=== PATIENT | male | born 1985 | race Caucasian/White ===

== ENCOUNTER 2025-08-30 20:40 | Emergency (ER) | payer BC, SELFPAY ==
[2025-08-30 20:45] VITALS: BP 153/85; PULSE 96; RESP 16; TEMP 37.3; O2SAT 99; BMI 35.9
[2025-08-30 20:59] LABS: Appearance Urine Clear (Clear)
--- NOTE | 2025-08-30 21:32 | CRLHL7_ITS ---
For Patients: As a result of the Century Cures Act, medical imaging exams and procedure reports are released immediately into your electronic medical record. You may view this report before your referring provider. If you have questions, please contact your health care provider. Indication: Right flank pain, abdominal pain Technique: Noncontrast CT through the abdomen and pelvis with multiplanar reformats. Comparison: None Findings: Lower chest: No acute abnormality appreciated. Hepatobiliary: No significant parenchymal abnormality is appreciated. Spleen: Unremarkable. Pancreas: No acute abnormality appreciated. Adrenal glands: No acute abnormality appreciated. Kidneys: No significant parenchymal abnormality appreciated. No visualized calculi. No hydronephrosis. Bowel: No obstruction. No focal perienteric or pericolonic stranding is appreciated. The appendix is visualized and appears unremarkable. Vascular: Poorly evaluated on this noncontrast examination. Lymph nodes: No gross lymphadenopathy. Peritoneum: No free air. No free fluid. : There is a punctate stone at the right UVJ. Soft tissues: No acute abnormality appreciated. Fat containing left inguinal hernia. Bones: No acute fracture. No lytic or blastic lesion. Impression: Punctate right UVJ stone without evidence of hydronephrosis. Please note that all CT scans at this facility use dose modulation, iterative reconstruction, and/or weight-based dosing when appropriate to reduce radiation dose to as low as reasonably achievable. Dictated by Navdeep Velasco MD @ 08/30/2025 10:40:05 PM (Electronically Signed)
--- NOTE | 2025-08-30 21:34 | ED.ABDPAIN ---
HPI - Abdominal Pain General Time Seen by Provider: 21:34 Date Seen: 08/30/25 Chief Complaint: Abdominal Pain Stated Complaint: Lower R flank pain Time Seen by Provider: 08/30/25 21:34 Source: patient Mode of arrival: ambulatory History of Present Illness HPI narrative: Barrera is a 39 year old male with a past medical history of anxiety who presents to the emergency department for evaluation of flank pain. Patient reports that on Thursday/Thursday he noticed he was having little bit of lower abdominal pain. Patient states that yesterday on Thursday he developed right flank pain. Patient complains of intermittent pain along with increased urinary frequency/urgency/change in stream. Patient reports he was concerned for kidney stone. Patient reports nausea but denies any fever, chills, vomiting, chest pain, shortness of breath. No medications prior to arrival, no prior abdominal surgeries, no other complaints. Related Data Home Medications ?Medication ?Instructions ?Recorded ?Confirmed No Known Home Medications 08/30/25 08/30/25 Allergies Allergy/AdvReac Type Severity Reaction Status Date / Time Penicillins Allergy Nausea Verified 08/30/25 20:48 Review of Systems Narrative Past medical history, past surgical history, medications, allergies, family history, and social history were reviewed with the patient. No additional pertinent items. A medically appropriate review of systems was performed with pertinent positives and negatives noted in HPI, all other systems negative. Exam Narrative: Exam Narrative: General: Afebrile, in distress secondary to pain HEENT: Normocephalic, atraumatic, conjunctiva normal. MMM Neck: non-tender, supple Cardio: regular rate. regular rhythm Resp: Normal work of breathing, no respiratory distress, lungs clear bilaterally, no wheezing, rhonchi, rales Chest/Back: no visual signs of trauma, no midline tenderness, + right flank tenderness to palpation Abdomen: soft, non distension, no tenderness, no peritoneal signs Neuro: alert and fully oriented. CN II-XII grossly intact. Grossly normal strength and sensation in all extremities. MSK: no deformities. Normal range of motion Integumentary/Skin: no rash visualized, normal color Psych: normal affect, normal behavior Const: Vital Signs, click to edit/add: Vital Signs - 24 hr 08/30/25 20:45 Temperature 99.1 F Pulse Rate [Pulse Oximeter] 96 Respiratory Rate 16 Blood Pressure [Ri ght Upper Arm] 153/85 H Pulse Oximetry 99 Oxygen Delivery Me thod Room Air Course Vital Signs Vital signs: Initial Vital Signs Temperature 99.1 F 08/30/25 20:45 Temperature Source Temporal Artery Scan 08/30/25 20:45 Pulse Rate 96 08/30/25 20:45 Respiratory Rate 16 08/30/25 20:45 Blood Pressure 153/85 H 08/30/25 20:45 Blood Pressure Mean 107 H 08/30/25 20:45 Blood Pressure Position Sitting 08/30/25 20:45 Pulse Oximetry 99 08/30/25 20:45 Oxygen Delivery Method Room Air 08/30/25 20:45 Vital Signs Temperature 99.1 F 08/30/25 20:45 Pulse Rate 96 08/30/25 20:45 Respiratory Rate 16 08/30/25 20:45 Blood Pressure 153/85 H 08/30/25 20:45 Pulse Oximetry 99 08/30/25 20:45 Oxygen Delivery Method Room Air 08/30/25 20:45 Temperature 99.1 F 08/30/25 20:45 Pulse Rate 96 08/30/25 20:45 Respiratory Rate 16 08/30/25 20:45 Blood Pressure 153/85 H 08/30/25 20:45 Pulse Oximetry 99 08/30/25 20:45 Oxygen Delivery Method Room Air 08/30/25 20:45 Medications Administered Medications: Discontinued Medications Generic Name Dose Route Start Last Admin Trade Name Freq PRN Reason Stop Dose Admin Sodium Chloride 1,000 mls @ 1,000 mls/hr 08/30/25 21:45 08/30/25 22:47 0.9 % Sodium Chloride 1000 Ml IV 08/30/25 22:44 Infused .Q1H LAMINE Infusion Ketorolac Tromethamine 15 mg 08/30/25 21:32 08/30/25 21:40 Ketorolac 15 Mg/Ml Inj IVP 08/30/25 21:33 15 mg ONCE ONE Administration MDM - Abdominal Pain MDM Narrative Medical decision making narrative: Barrera is a 39-year-old male who presents the emergency department for evaluation of right flank pain. Upon arrival patient is nontoxic appearing, afebrile, in distress secondary to pain. Patient is slightly hypertensive upon arrival blood pressure 153/85, heart rate 96, oxygen 99% on room air. Differential diagnosis includes but is not limited to kidney stone versus pyelonephritis versus cystitis versus appendicitis versus musculoskeletal versus colitis versus cholecystitis among others. Upon arrival patient was treated with IV Toradol, 1 L IV fluid bolus. Comprehensive labs, urinalysis, CT imaging performed. Comprehensive labs unremarkable with no leukocytosis white blood cell count 10.4, hemoglobin 12.3, no acute metabolic electrolyte abnormality, no transaminitis, urinalysis with blood, 2-5 red blood cells, no evidence of acute infection. I personally reviewed and interpreted CT scan abdomen pelvis which demonstrates punctate stone at right UVJ with no evidence of hydronephrosis. Otherwise unremarkable CT scan of the abdomen pelvis. On re-evaluation patient continues to be resting comfortably, no distress. I discussed results with patient. At this time patient feels comfortable discharge home with continued supportive care, recommend alternating Tylenol, ibuprofen every 6 hours as needed for pain. Patient declined anything stronger for pain medications. Encouraged close outpatient follow-up with his primary care provider. Strict return precautions discussed if severe pain, persistent high fever, persistent vomiting, worsening symptoms. Patient understands and agrees the plan. Medical Records Attestation: I reviewed the patient's medical records. Lab Data Attestation: I reviewed the patient's lab results. Labs: Lab Results 08/30/25 08/30/25 Range/Units 21:43 Unknown WBC 10.46 (4.50-11.00) K/uL RBC 5.43 (4.30-5.90) m/uL Hgb 12.3 L (13.5-17.5) gm/dL Hct 39.6 (37.0-53.0) % MCV 73 L (80-100) fL MCH 23 L (26-34) pg MCHC 31 L (32-36) gm/dL RDW Coeff of Andrew 17.4 H (11.5-15.5) % Plt Count 397 (140-440) K/uL Neut % (Auto) 56.1 (42.0-72.0) % Lymph % (Auto) 33.9 (20-44) % [place] % (Auto) 7.9 (0.0-11.0) % Eos % (Auto) 1.4 (0.0-7.0) % Baso % (Auto) 0.4 (0.0-3.0) % Neut # (Auto) 5.86 (1.7-7.0) K/uL Lymph # (Auto) 3.55 H (0.90-2.90) K/uL [place] # (Auto) 0.80 (0.00-0.90) K/UL Eos # (Auto) 0.15 (0.00-0.50) K/uL Baso # (Auto) 0.04 (0.00-0.30) K/uL Abs Immat Gran (auto) 0.03 (0.00-0.30) K/uL Imm/Tot Granulo (auto) 0.3 % Sodium 140 (135-149) mmol/L Potassium 3.9 (3.6-5.1) mmol/L Chloride 100 (96-114) mmol/L Carbon Dioxide 26 (20-32) mmol/L Anion Gap 14 (7-15) mEq/L BUN 11 (5-24) mg/dL Creatinine 0.9 (0.5-1.5) mg/dL Estimated Creat Clear 113.78 Estimated GFR 111 ml/min Glucose 97 (60-115) mg/dL Calcium 9.1 (8.4-10.6) mg/dL Total Bilirubin 0.5 (0.1-1.5) mg/dL AST 38 H (12-35) U/L ALT 45 (4-50) U/L Alkaline Phosphatase 104 (40-150) U/L Total Protein 8.7 H (6.0-8.3) g/dL Albumin 4.8 (3.3-5.0) g/dL Lipase 49 (23-300) U/L Urine Color Yellow (Yellow) Urine Appearance Clear (Clear) Urine pH 6.0 (5.0-8.5) Ur Specific [place] 1.025 (1.000-1.030) Urine Protein Negative (Negative) Urine Glucose (UA) Negative (Negative) Urine Ketones Negative (Negative) Urine Blood 1+ A (Negative) Urine Nitrite Negative (Negative) Urine Bilirubin Negative (Negative) Urine Urobilinogen 0.2 (0.2-1.0) Ur Leukocyte Esterase Negative (Negative) Urine RBC 2-5 A (0-2) Urine WBC 0-2 (0-5) Ur Squamous Epith Cells Few (None-Few) Urine Bacteria Few A (None) Imaging Data CT scan - abdomen: Attestation: I have reviewed the pertinent imaging results. Radiologist's impression: Patient: Barrera Ramesh MR#: [id number] : 1985 Acct:[id number] Loc: ED Service Date: 08/30/[address]: Ordering Physician: Daxa Martin M.D. Date of Service: 08/30/25 Procedure(s): CT abdomen pelvis wo con Accession Number(s): [id number] cc: Daxa Martin M.D.; Provider,Not a Local~ For Patients: As a result of the Cures Act, medical imaging exams and procedure reports are released immediately into your electronic medical record. You may view this report before your referring provider. If you have questions, please contact your health care provider. Indication: Right flank pain, abdominal pain Technique: Noncontrast CT through the abdomen and pelvis with multiplanar reformats. Comparison: None Findings: Lower chest: No acute abnormality appreciated. Hepatobiliary: No significant parenchymal abnormality is appreciated. Spleen: Unremarkable. Pancreas: No acute abnormality appreciated. Adrenal glands: No acute abnormality appreciated. Kidneys: No significant parenchymal abnormality appreciated. No visualized calculi. No hydronephrosis. Bowel: No obstruction. No focal perienteric or pericolonic stranding is appreciated. The appendix is visualized and appears unremarkable. Vascular: Poorly evaluated on this noncontrast examination. Lymph nodes: No gross lymphadenopathy. Peritoneum: No free air. No free fluid. : There is a punctate stone at the right UVJ. Soft tissues: No acute abnormality appreciated. Fat containing left inguinal hernia. Bones: No acute fracture. No lytic or blastic lesion. Impression: Punctate right UVJ stone without evidence of hydronephrosis. Please note that all CT scans at this facility use dose modulation, iterative reconstruction, and/or weight-based dosing when appropriate to reduce radiation dose to as low as reasonably achievable. Dictated by Navdeep Velasco MD @ 08/30/2025 10:40:05 PM Discharge Plan Discharge Clinical Impression: Calculus, ureteral, Acute right flank pain Patient Disposition: Home, Self-Care Condition: Stable Additional Instructions: Please follow-up with your primary care provider in the next 3-5 days for further evaluation and follow-up. Please call to schedule appointment. Please drink plenty of fluids. Please alternate taking Tylenol 1000 mg and ibuprofen 600 mg every 6 hours as needed for pain. Please return to the emergency department if you develop severe pain, persistent vomiting, high fever, worsening symptoms. It was a pleasure taking care of you today. We hope you feel better soon. Prescriptions: No Action No Known Home Medications Follow Up/Referrals: Provider,Not a Local [Primary Care Provider, Family Practice] Stand Alone Forms: [employer] Info Instructions
[2025-08-30 21:49] LABS: Hematocrit* 39.6 % (37.0-53.0); Hemoglobin* 12.3 gm/dL (13.5-17.5); Immature Granulocytes Abs Auto 0.03 K/uL (0.00-0.30); Immature Granulocytes Pct Auto 0.3 %; Lymphocytes Absolute Auto 3.55 K/uL (0.90-2.90); Mean Corpuscular HGB Conc 31 gm/dL (32-36); Mean Corpuscular Hemoglobin 23 pg (26-34); Mean Corpuscular Volume 73 fL (80-100); RDW Coefficient of Variation % 17.4 % (11.5-15.5); Red Blood Count* 5.43 m/uL (4.30-5.90); White Blood Count* 10.46 K/uL (4.50-11.00)
[2025-08-30 21:55] LABS: Slide Review Reflex No
[2025-08-30 22:18] LABS: Chloride* 100 mmol/L (96-114)
[2025-08-30 22:19] LABS: Albumin* 4.8 g/dL (3.3-5.0); Potassium* 3.9 mmol/L (3.6-5.1); Sodium* 140 mmol/L (135-149)
[2025-08-30 22:21] LABS: Blood Urea Nitrogen* 11 mg/dL (5-24); Creatinine* 0.9 mg/dL (0.5-1.5); Est. Creatinine Clearance* 113.78; Estimated Glomerular Filt Rate 111 ml/min
[2025-08-30 22:22] LABS: Alanine Aminotransferase* 45 U/L (4-50); Alkaline Phosphatase* 104 U/L (40-150); Anion Gap 14 mEq/L (7-15); Aspartate Amino Transferase* 38 U/L (12-35); Bilirubin Total* 0.5 mg/dL (0.1-1.5); Calcium* 9.1 mg/dL (8.4-10.6); Carbon Dioxide* 26 mmol/L (20-32); Glucose* 97 mg/dL (60-115); Total Protein* 8.7 g/dL (6.0-8.3)
--- OUTSIDE RECORDS SUMMARY | 2025-08-30 22:25 | XMS_ITS | Clinical Summary ---
Author Organization [facility] Address [address], [place] [address] Care Team Providers Care Supervisor Ski Production Name Role Phone Nilay Jalloh PA-C Primary Care Provider [phone] Source Comments You are receiving this document as you are listed as the primary care provider,follow-up provider, or the patient has been referred to you for consultation.This is in compliance with the Medicare and[facility] Hospital[facility] EHR Incentive Program,which states Providers who transition their patient to another setting of careor provider of care or refers their patient to another provider of care shouldprovide summary care record for each transition of care or referral. Rad Allergies Active Allergy Reactions Criticality Noted Date Comments Amoxicillin 02/28/2015 Penicillins Gastrointestinal 02/28/2015 Medications methylPREDNISolon e (MEDROL 21 TABLET DOSEPACK) 4 MG tabletIndications :Lumbar back pain with radiculopathy affecting left lower extremity Follow package directions 21 Tablet 02/28/20 25 Active semaglutide-weigh t management (WEGOVY) 0.25 MG/0.5ML pen injectionIndicati ons:BMI 37.0-37.9, adult,Obesity (BMI 30-39.9) ([facility]) Inject 0.25mg subcutaneously one time weekly for 4 weeks 2 mL 02/28/20 25 Active semaglutide-weigh t management (WEGOVY) 0.5 MG/0.5ML pen injectionIndicati ons:BMI 37.0-37.9, adult,Obesity (BMI 30-39.9) ([facility]) Inject 0.5 mg subcutaneously one time weekly for 4 weeks Do not start before March 27, 2025. 2 mL 03/27/20 25 Active semaglutide-weigh t management (WEGOVY) 1 MG/0.5ML pen injectionIndicati ons:BMI 37.0-37.9, adult,Obesity (BMI 30-39.9) ([facility]) Inject 1.0 mg subcutaneously one time weekly for 4 weeks Do not start before April 24, 2025. 2 mL 04/24/20 25 Active semaglutide-weigh t management (WEGOVY) 1.7 MG/0.75ML pen injectionIndicati ons:BMI 37.0-37.9, adult,Obesity (BMI 30-39.9) ([facility]) Inject 1.7 mg subcutaneously one time weekly for 4 weeks Do not start before May 22, 2025. 3 mL 05/22/20 25 Active semaglutide-weigh t management (WEGOVY) 2.4 MG/0.75ML pen injectionIndicati ons:BMI 37.0-37.9, adult,Obesity (BMI 30-39.9) ([facility]) Inject 2.4 mg subcutaneously one time weekly for 4 weeks Do not start before June 19, 2025. 9.75 mL 3 06/19/20 25 026 Active Active Problems Problem Noted Date Diagnosed Date Fatty liver 05/25/2023 Medical cannabis use 10/23/2022 Overview (10/23/2022): Using for PTSD. Initial certification processed 10/23/2022 Idiopathic chronic gout of multiple sites withou t [facility] [place] 04/30/2021 Overview (06/24/2022): Controlled on allopurinol 100 mg daily, colchicine for flares. Followed by Rheumatology John Paul Cartagena MD Moderate episode of recurrent major depressive d isorder 06/10/2018 Overview (03/03/2023): Controlled on Zoloft 100 mg daily CLARK (generalized anxiety disorder) 06/10/2018 Overview (03/03/2023): Controlled on Zoloft 100 mg daily. Obesity (BMI 30-39.9) 12/11/2017 Overview (12/11/2017): Controlled on lifestyle and diet modifications. History of tobacco abuse 12/11/2017 Overview (01/14/2018): Quit in 2016 Resolved Problems Problem Noted Date Diagnosed Date Resolved Date Major depressive disorder, s mildred episode, moderate 07/20/2015 12/11/2017 Panic disorder 07/16/2015 12/11/2017 Encounters Date Type Department Care Team Description 06/20/2025 1:00 PM CDT Telemedicine [facility] [address] [place] [address] Nilay Jalloh, PAMashaC NAFLD (nonalcoholic fatty liver disease) (HRC) (Primary Dx); Obesity (BMI 30-39.9) (HRC); BMI 37.0-37.9, adult from Last 3 Months Immunizations Immunization Administration Dates Next Due DTP 05/04/1991, 1,06/15/1986,1985,02/01/1986 Fluzone Qiv Multidose Vial 0 .25 (6-35 Mos) 09/08/2016 HepB Adolescent/High Risk 02/07/1997 HepB Ped/Adol (0-18 yrs) 09/07/1996,08/08/1996 Influenza IIV4 (Quadrivalent ) 0.5mL (99121) 09/07/2019,11/05/2018 MMR 06/09/2000,05/14/1987 Polio, Unspecified Formulation 1,12/02/1990,03/28/1986,1985 Td (7+ yrs) 06/09/2000 Tdap 09/03/2020,09/28/2008 Family History Medical History Relation Name Comments Arthritis Mother Back surgery Depression Sister 1 Julieta Diabetes Sister 1 Julieta Type I Relation Name Status Comments Father Alive Born in 1962 Mother Alive Born in 1965 Sister 1 Julieta Alive Born in 1994 Sister 2 Estela Alive Born in 1984 Son Alive Born in 2011 Social History Tobacco Use Types Packs/Day Years Used Date Smoking Tobacco: Former Cigarettes 0.3 10 Smokeless Tobacco: Never Tobacco Cessation:Counseling Given: Not Answered Alcohol Use Standard Drinks/Week Comments No 0 (1 standard drink = 0.6 oz pur e alcohol) PHQ-2 Answer Date Recorded PHQ-2 Score 2 03/13/2025 Sex and Gender Information Value Date Recorded Sex Assigned at Not on file Legal Sex Male 4:33 PM CDT Gender Identity Not on file Sexual Orientation Not on file 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 Not on file Not on file Not on fi le Last Filed Vital Signs Vital Sign Reading Time Taken Comments Blood Pressure 131/86 02/23/2025 3:59 PM CDT Pulse 98 02/23/2025 3:59 PM CDT Temperature 36.9 C (98.5 F) 02/23/2025 3:58 PM CDT Respiratory Rate 16 11/14/2024 11:0 9 AM [employer] Oxygen Saturation 98% 04/25/2024 9:36 AM CDT Inhaled Oxygen Concentration - - Weight 116.5 kg (256 lb 12.8 oz) 02/23/2025 3:58 PM CDT Height 176.5 cm (5' 9.5) 11/14/2024 11 :09 AM [employer] Body Mass Index 37.38 11/14/2024 11:09 AM [employer] Plan of Treatment Health Maintenance Due Date Last Done Comments HPV Vaccine (1 - 3-dose SCDM series) 2012 Adult Preventive Visit 03/03/2025 03/03/2023, 2017 COVID-19 Vaccine ( season) 2025 Influenza Vaccine (#1) 2025 9, 11/05/2018, 09/08/2016 Diabetes Screening- (based on age and BMI) 11/14/2027 11/14/2024, 03/03/2023, 04/19/2020 Cholesterol 03/03/2028 03/03/2023, 05/30, 01/14/2018 DTaP/Tdap/Td Vaccine (7 - Tdap) 09/03/2030 09/03/2020, 09/28/2008, 06/09/2000, Additional history exists Zoster/Shingles Vaccine (1 of 2) 12/02/2035 IPV (Polio) Vaccine Completed 07/04/1991, 12/02/1990, 03/28/1986, Additional history exists HepB Vaccine Completed 02/07/1997, 08/28, 08/08/1996 HIV Screening (Preventive Services) Completed 01/14/2018 Hep C Screening (Preventive Services) Completed 11/14/2024, 03/03/2023 HepA Vaccine Aged Out No longer eligi ble based on patient's age to complete this topic Hib Vaccine Aged Out No longer eligi ble based on patient's age to complete this topic MCV4 Vaccine Aged Out No longer eligi ble based on patient's age to complete this topic Meningococcal B Vaccine Aged Out No l onger eligible based on patient's age to complete this topic Pneumococcal Vaccine Aged Out No long er eligible based on patient's age to complete this topic Procedures Procedure Name Priority Date/Time Associated Diagnosis Comments HEPATITIS PANEL ACUTE WITH REFLEX TO CONFIRMATION Routine 11/14/2024 11:50 AM [employer] Hepatosplenomegaly (HRC) LIPID PANEL & DIRECT LDL (IF NEEDED) Routine 03/03/2023 10:25 AM CDT Lipid screening HGB A1C Routine 04/19/2020 7:39 AM CDT Generalized abdominal pain HIV 1/2 AG/AB 4TH GEN Routine 01/14/2018 8:24 AM CDT Screening for human immunodeficiency virus from Last 3 Months or Most Recently Relevant to Health Maintenance Results * Hepatitis Panel with Reflex to Confirmation (11/14/2024 11:50 AM EXEC[employer]IVE [employer]) Hepatitis A Antibody, IgM Negative (Non Reactive) Negative (Non Reactive) 11/16/2024 6:11 PM [employer]IVE [employer] [facility] Comment:IgM anti-HAV not det ected. Does not exclude the possibility of exposure to or infection with HAV. Levels of IgM anti-HAV may be below the cut-off in early infection. Hepatitis Bc Antibody,IgM Negative (Non Reactive) Negative (Non-Reacti ve) 11/16/2024 6:11 PM [employer]EC[employer]IVE [employer] [facility] Comment:IgM anti-HBc not det ected. Does not exclude the possibility of exposure to or infection with HBV. Hepatitis B Surface Antigen Negative (Non Reactive) Negative (Non Reactive) 11/16/2024 6:11 PM [employer]EC[employer]IVE [employer] [facility] Hepatitis C Antibody Negative (Non Reactive) Negative (Non Reactive) 11/16/2024 6:11 PM [employer]EC[employer]IVE [employer] [facility] Comment:Antibodies to HCV no t detected. Does not exclude the possiblity of exposure to HCV. Blood Venipuncture / Unknown 11/14/2024 11:50 AM [employer]IVE [employer] 11/14/2024 11:50 AM [employer]IVE [employer] us Libby Garcia MD LAB_1 Final Result Performing Organization Address [facility]/ZIP Co de Phone Number [facility] [address] * (ABNORMAL) Lipid Panel and Direct LDL(If Needed) (03/03/2023 10:25 AM CDT) Cholesterol 181 0 - 199 mg/dL 03/03/2023 11:01 AM CDT [facility] Triglyceride 172(H) <=149 mg/dL 03/03/2023 11:01 AM CDT [facility] HDL Cholesterol 29(L) >=40 mg/dL 3 11:01 AM CDT [facility] LDL, Calculated 118 <130 mg/dL 3 11:01 AM CDT [facility] Non HDL Chol, Calculated 152 <=159 mg/dL 03/03/2023 11:01 AM CDT [facility] Cholesterol/HDL Ratio 6.2 03/03/2023 11:01 AM CDT [facility] Hours Fasting 12 03/03/2023 11:01 AM CDT [facility] Blood Venipuncture / Unknown 03/03/2023 10:25 AM CDT 03/03/2023 10:25 AM CDT us Nilay Jalloh PA-C LAB_1 Final Res ult [facility] [address] [place], [place] [address] [phone] * (ABNORMAL) Hgb A1C (04/19/2020 7:39 AM CDT) Hemoglobin A1C 5.9(H) <=5.6 % 04/19/2020 3:46 PM CDT [facility] Blood Venipuncture / Unknown 04/19/2020 7:39 AM CDT 04/19/2020 7:39 AM CDT Narrative [facility] - 04/19/2020 3:46 PM CDT For patients not previously diagnosed with diabetes: 5.7-6.4%: Increased risk for diabetes 6.5% and greater: Diagnostic for diabetes For patients diagnosed with diabetes: <8.0%: Goal of therapy for ages 18-75 Clinicians may recommend a higher or lower goal for specific individuals. us Nilay Jalloh PA-C LAB_1 Final Res ult Performing Organization Address City/[facility]/ZIP Co de Phone Number [facility] [address] [address] [phone] * HIV 1/2 Ag/Ab 4th Generation (01/14/2018 8:24 AM CDT) HIV-1 p24 Ag and HIV-1/HIV-2 Ab Nonreactive Nonreactive [facility] SOFT 01/14/2018 8:24 AM CDT 01/14/2018 12:46 PM CDT Narrative [facility] - 01/14/2018 2:05 PM CDT Performed at [address] [address] CLIA number [id number] Nilay Jalloh PA-C LAB_1 Final Res ult Performing Organization Address City/[facility] Co de Phone Number PN SOFT [address] [place] [phone] from Last 3 Months or Most Recently Relevant to Health Maintenance Insurance [facility] Care Teams Supervisor Ski Production Relationship Specialty Start Date End Date Nilay Jalloh PA-C [address] [place] [address] PCP - General Internal Medicine 06/19/22
--- OUTSIDE RECORDS SUMMARY | 2025-08-30 22:25 | XMS_ITS | Clinical Summary ---
Author Organization [facility] Address [address] [place] [id number] Care Team Providers Care Real Estate Portfolio Manager Name Role Phone Hussein Lawrence DO Unavailable Unavailable Lesley Paiz Primary Care Provider Unava ilable Allergies Active Allergy Reactions Criticality Noted Date Comments Amoxicillin Vomiting Low 04/04/2015 Penicillins Vomiting Low 04/04/2015 Medications sertraline (ZOLOFT) 50 mg tablet Take 1 Tablet by mouth daily. Please follow-up in June 2021 for medication check. Active Active Problems No known active problems Immunizations Immunization Administration Dates Next Due Tdap 09/03/2020 Family History Medical History Relation Name Comments Good Health Father Good Health Mother Cancer-colon Paternal Grandfather Premature CHD (under age 60) Paternal Grandmother Diabetes Sister Type I Relation Name Status Comments Father Alive Half-Sister Alive Mother Alive Paternal Grandfather Paternal Grandmother Sister Social History Tobacco Use Types Packs/Day Years Used Date Smoking Tobacco: Former Cigarettes Smokeless Tobacco: Never Tobacco Cessation:Ready to Q uit: No; Counseling Given: Yes Alcohol Use Standard Drinks/Week Comments No 0 (1 standard drink = 0.6 oz pur e alcohol) Sex and Gender Information Value Date Recorded Sex Assigned at Not on file Legal Sex Male 7:13 AM [employer] Gender Identity Not on file Sexual Orientation Not on file Obstetrics History Last Filed Vital Signs Vital Sign Reading Time Taken Comments Blood Pressure 138/93 03/12/2025 12:13 PM CDT Pulse 94 03/12/2025 12:13 PM CDT Temperature 36.9 C (98.4 F) 03/12/2025 12:13 PM CDT Respiratory Rate 12 03/12/2025 12:13 PM CDT Oxygen Saturation 97% 03/12/2025 12:13 PM CDT Inhaled Oxygen Concentration - - Weight 113.4 kg (250 lb) 03/12/2025 12:13 PM CDT Height 175.3 cm (5' 9) 03/10/2022 11:13 AM CDT Body Mass Index 36.92 03/10/2022 11:13 AM CDT Plan of Treatment Health Maintenance Due Date Last Done Comments Depression screening for age 12+ 1997 HIV for age 15-65 2000 BMI (ht and wt on same day) for age 18+ 12/02/2003 Hepatitis C screening for ag e 18-79 12/02/2003 Hepatitis B series for 19+ ( 1 of 3 - 19+ 3-dose series) 2004 HPV series for age 9-45 (1 - 3-dose SCDM series) 2012 Lipids for age 35-44 2020 COVID-19 vaccine series ( - 2024- season) 2025 Influenza Vaccine (#1) 2025 Tetanus booster 09/03/2030 09/03/2020 RSV vaccine for adults or (1 - 1-dose 75+ series) 2060 Pneumococcal series for age 6-49 Aged Out No longer eligible based on patient's age to complete this topic Insurance [facility] Care Teams Real Estate Portfolio Manager Relationship Specialty Start Date End Date Lesley Paiz PCP - General 06/30/17 Hussein Lawrence DO Family Practice 04/04/15
--- OUTSIDE RECORDS SUMMARY | 2025-08-30 22:25 | XMS_ITS | Encounter Summary ---
Author Organization [facility] Address [address], [place] [address] Care Team Providers Care Chassis Inspector Name Role Phone Nilay Jalloh PA-C Primary Care Provider [phone] Reason for Visit * Reason Comments CONSULT Encounter Details Date Type Department Care Team (Late st Contact Info) Description 05/03/2020 E-Consult [facility] Oncology [address], [place] [address] Devendra Abdi MBBS [address] [place], [place] [address] Leukocytosis, unspecified type (Primary Dx) Social History Tobacco Use Types Packs/Day Years Used Date Smoking Tobacco: Former Cigarettes Smokeless Tobacco: Never Alcohol Use Standard Drinks/Week Comments No 0 (1 standard drink = 0.6 oz pur e alcohol) Sex and Gender Information Value Date Recorded Sex Assigned at Not on file Legal Sex Male 4:33 PM CDT Gender Identity Not on file Sexual Orientation Not on file 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 This is a 34-year-old male referred to the Hematology Clinic (e-consult) for mild leukocytosis. Per review of the chart, he also has a history of depression, GED, a previous history of tobacco use and a current history of smoking marijuana. His medications include Zoloft. He recently visited with his PCP, and has been undergoing a workup for some ill- defined abdominal pain, and thus far the results of his stool tests and H pylori have been negative. However on 04/19/2020 he was noted to have a white count of 14.6, a hemoglobin of 13, platelet count of 738944, and absolute neutrophil count of 7.7 and an absolute lymphocyte count of 5.6. His counts were repeateda few days later and were in a similar range. His total protein was slightly elevated at 8.5. A peripheral smear was reviewed by pathology. There was no evidence of myelodysplasia. He had mild rouleaux. A few reactive lymphocytes were noted. Additionally his MCV was in the low 70s, and his ferritinwas 415, % saturation 29. Back in May 2018, his white count was 11.1 and his hemoglobin was 13. Based on review of of his chart, the etiology for his leukocytosis is not completely evident. He does not appear to have had any recent febrile illness or infectious type symptoms. He does have a history of depression and is on sertraline, but does not appear that he is on lithium (lithium can be associated with leukocytosis). He has had a history of smoking, and currently apparently smokes marijuana. Tobacco use and marijuana use can be associated with leukocytosis, the latter has been described to be associated with leukocytosis in multiple reports including reports by Yady et al, J Cannabis Research 2019, and Darlin et al,. J Lab Clin analysis 2017. I do suspect that his leukocytosis is likely related to the smoking/marijuana use. However to be absolutely certain we are not missing any more serious underlying hematologic disorders, I do think it would be reasonable to perform additional lab tests. I would send a peripheral blood bcr-abl and a peripheral blood JAK2 mutation. Leah also has been noted to have mild absolute lymphocytosis, I would send peripheral blood flow cytometry to make sure we are not missing a CLL like disorder. Lastly, he does have an elevated total protein, and was noted to have some rouleaux on his peripheral blood. I would recommend sending a serum protein electrophoresis. I suspect the mild anemia could be related to the marijuana use as well, his ferritin is in the normal/elevated range, do not believe he has iron deficiency. He certainly could have a mild form of a thalassemia, we could certainly check a 1 time hemoglobin electrophoresis to make sure we are not missing a beta thalassemia. Please note that alpha-thalassemias are not picked up on routine lab testing, and sometimes require special additional testing for diagnosis, but I do not believe this is required at this point of time. In summary, please send a peripheral blood BCR-ABL, a peripheral blood JAK2 test, peripheral blood flow cytometry to assess for CLL, and a serum protein electrophoresis. Please also send a hemoglobinelectrophoresis to assess for a beta thalassemia. Please feel free to contact me when the results of the above tests are available, and if any concerns are noted, I would be happy to see him in clinic. If no abnormalities are detected, then I do not believe we need to consider a bone marrow biopsy,at least at this point of time. He can continue to have an annual CBC and differential performed, and could be referred back to Hematology if there are any worsening concerns in the future. In the interim he should strongly be encouraged to cut back on the marijuana use if this is an ongoing issue. Total time spent on this electronic consult was 25 minutes, this included reviewing the chart, reviewing some of the literature pertaining to leukocytosis in the setting of marijuana use, and formulating a plan of care going forward. documented in this encounter Plan of Treatment Not on file documented as of this encounter Visit Diagnoses Diagnosis Leukocytosis, unspecified type- Primary documented in this encounter Additional Health Concerns Infection Onset Date Last Indicated Resolved Time R/O COVID19 09/09/2021 09/09/2021 09/10/2021 2:15 PM COMMERCIAL ANNOUNCER COVID19 09/09/2021 09/09/2021 09/29/2021 3:17 AM COMMERCIAL ANNOUNCER documented as of this encounter Care Teams Chassis Inspector Relationship Specialty Start Date End Date Nilay Jalloh PA-C [address] [place] [address] PCP - General Internal Medicine 06/19/22 documented as of this encounter
== END 2025-08-30 23:40 | disposition home or self-care (01) ==
PROVIDERS: Emergency Provider Emergency Medicine
DX: N20.1 Calculus of ureter (principal); R10.A1 Flank pain, right side
CPT/HCPCS: 36415; 74176; 80053; 81001; 83690; 85025; 87086; 96361; 96374; 99284; 99285; J1885; J7030